=== PATIENT | male | born 1960 ===

== ENCOUNTER 2016-08-09 22:53 | Emergency (ER) | payer BC ==
[2016-08-09 23:11] VITALS: BP 146/87
[2016-08-09] MEDS ORDERED: NS 0.9% 1000 ML* 1,000 ML IV ONE (23:32)
--- NOTE | 2016-08-09 23:53 | ED ---
I, Oh,Conrado, scribed for Isidro Barker MD on 08/09/16 at 2345 . Shortness of Breath - HPI Summary HPI Summary: This 55 y/o male presents to ED for acute onset of SOB since 3 days ago. Pt reports that he has been recently [place] of [place] on an [place] [facility] as destination. Positive subjective fever, rhinorrhrea, general myalgia , productive cough with yellow sputum. Temperature of 97.8 F is noted at triage. APAP alleviates the symptoms somewhat. PMHx includes collapsed lung in 1984. - History of Current Complaint Chief Complaint: EDShortnessOfBreath Time Seen by Provider: 08/09/16 23:25 Hx Obtained From: Patient, Medical Records Onset/Duration: Gradual Onset Timing: Constant Dyspnea At: Rest Associated Signs & Symptoms: Cough (Productive), Fever - Allergy/Home Medications Allergies/Adverse Reactions: Allergies Allergy/AdvReac Type Severity Reaction Status Date / Time No Known Allergies Allergy Verified 03/10/15 11:37 PMH/Surg Hx/FS Hx/Imm Hx Endocrine/Hematology History: Denies: Hx Diabetes Cardiovascular History: Denies: Hx Hypertension, Hx Pacemaker/ICD Sensory History: Denies: Hx Hearing Aid Psychiatric History: Denies: Hx Panic Disorder - Surgical History Surgery Procedure, Year, and Place: 1984 COLLAPSED LUNG, 1999 RT SHOULDER ROTATOR [facility] Infectious Disease History: Yes Infectious Disease History: Reports: Traveled Outside the [place] in Last 30 Days - Family History Known Family History: Negative: Respiratory Disease - Social History Hx Substance Use: No Substance Use Type: Reports: None Hx Tobacco Use: No Smoking Status (MU): Never Smoked Tobacco Review of Systems Positive: Fever - subjective Positive: Other - rhinorrhea Positive: Shortness Of Breath, Cough - productive cough Positive: Myalgia - gneeral All Other Systems Reviewed And Are Negative: Yes Physical Exam Triage Information Reviewed: Yes Vital Signs On Initial Exam: Initial Vitals Temp Pulse Resp BP Pulse Ox 97.8 F 72 18 146/87 96 08/09/16 23:04 08/09/16 23:04 08/09/16 23:04 08/09/16 23:04 08/09/16 23:04 Vital Signs Reviewed: Yes Appearance: Positive: Well-Appearing, No Pain Distress Skin: Positive: Warm Head/Face: Positive: Normal Head/Face Inspection Eyes: Positive: AIDA ENT: Positive: Hearing grossly normal Neck: Positive: Supple Respiratory/Lung Sounds: Positive: Clear to Auscultation, Breath Sounds Present Cardiovascular: Positive: RRR Abdomen Description: Positive: Nontender, Soft Bowel Sounds: Positive: Present Musculoskeletal: Positive: Strength/ROM Intact Neurological: Positive: Alert, Oriented to Person Place, Time Psychiatric: Positive: Affect/Mood Appropriate Diagnostics - Vital Signs Vital Signs Temp Pulse Resp BP Pulse Ox 08/09/16 23:04 97.8 F 72 18 146/87 96 - Laboratory Result Diagrams: 08/09/16 23:49 08/09/16 23:49 Lab Statement: Any lab studies that have been ordered have been reviewed, and results considered in the medical decision making process. Re-Evaluation - Re-Evaluation First Eval Comment: results d/w pt Course/Dx - Course Assessment/Plan: Rapid flu is negative. - Diagnoses Provider Diagnoses: Viral illness Discharge - Discharge Plan Condition: Stable Disposition: HOME Patient Education Materials: Viral Syndrome (ED) Referrals: Non Staff,Doctor [Primary Care Provider] - [facility] [place] [facility]IAN REFERRAL [Outside] - 2 Days The documentation as recorded by the Travis andrade Soohyun accurately reflects the service I personally performed and the decisions made by , Isidro Barker MD.
[2016-08-10 00:06] LABS: Hematocrit 45 % (42-52); Hemoglobin 15.3 g/dl (14.0-18.0); Mean Corpuscular HGB Conc 34 g/dl (31-36); Mean Corpuscular Hemoglobin 29 pg (27-31); Mean Corpuscular Volume 85 fL (80-94); Mean Platelet Volume 8 um3 (7.4-10.4); Red Blood Count 5.34 10^6/ul (4.0-5.4); Red Cell Distribution Width 13 % (10.5-15); White Blood Count 6.4 10^3/ul (3.5-10.8)
[2016-08-10 00:18] LABS: Albumin 3.9 g/dL (3.2-5.2); BUN/Creatinine Ratio 12.5 (8-20); Calcium 9.1 mg/dL (8.6-10.3); EGFR African American 74.8 (>60); EGFR Non-African American 58.1 (>60); Globulin 3.1 g/dL (2-4); Total Bilirubin 0.3 mg/dL (0.2-1.0)
--- NOTE | 2016-08-10 07:46 | RAD ---
HISTORY: Shortness of breath COMPARISONS: None VIEWS: 2: Frontal dual-energy and lateral views of the chest. FINDINGS: CARDIOMEDIASTINAL SILHOUETTE: The cardiomediastinal silhouette is normal. PONCE: The ponce are normal. PLEURA: The costophrenic angles are sharp. No pleural abnormalities are noted. LUNG PARENCHYMA: There is hyperinflation with flattening of the diaphragm and expansion of the AP diameter of the chest. ABDOMEN: The upper abdomen is clear. There is no subphrenic gas. BONES AND SOFT TISSUES: Degenerative changes are noted along the spine. OTHER: None. IMPRESSION: HYPERINFLATION, CONSISTENT WITH COPD. NO ACTIVE CARDIOPULMONARY DISEASE.
== END 2016-08-10 00:45 | disposition home or self-care (01) ==
LOC: ED 22:53
DX: B34.9 Viral infection, unspecified (principal)
CPT/HCPCS: 36415; 71020; 80053; 85025; 87502; 99284